=== PATIENT | male | born 1985 ===

== ENCOUNTER 2021-08-05 08:23 | Outpatient (CLI) | payer MEDICAID ==
[2021-08-05 15:22] LABS: ALBUMIN 2.9 g/dL (3.2-5.5); ALBUMIN/GLOBULIN RATIO 0.7 (1.0-2.2); BILIRUBIN,TOTAL 1.1 mg/dL (0.2-1.0); CALCIUM 9.1 mg/dL (8.5-10.3); CREATININE 0.9 mg/dL (0.6-1.2); CRP - C-REACTIVE PROTEIN 6.4 mg/dL (0-1.0); TOTAL PROTEIN 7.1 g/dL (6.7-8.2)
[2021-08-08 10:02] LABS: IMMUNOGLOBULIN A 274 mg/dL (47-310); IMMUNOGLOBULIN G 834 mg/dL (600-1640); IMMUNOGLOBULIN M 109 mg/dL (50-300)
== END 2021-08-05 08:24 | disposition home or self-care (01) ==
LOC: LAB.S 08:23
PROVIDERS: ATTEND Physician Assistant
DX: R19.7 Diarrhea, unspecified (principal); K62.5 Hemorrhage of anus and rectum
CPT/HCPCS: 36415; 80053; 82784; 83516; 84443; 86140

== ENCOUNTER 2021-08-21 16:06 | Emergency (ER) | payer MEDICAID ==
--- NOTE | 2021-08-21 16:32 | ED Physician Documentation ---
History of Present Illness - Stated complaint Stated Complaint: DIARRHEA,FATIGUE,SKIN/MOUTH DRY - Chief complaint Chief Complaint: Abd Pain - History obtained from History obtained from: Patient - Additonal information Additional information: 36-year-old male who presents with about 6 weeks of profuse watery, sometimes bloody, diarrhea. Initially was coming about every hour than so down to every 2 hours. He was seen by an outside provider and started on Flagyl and Sulfasalazine, though he is not sure if he had any particular infection or diagnosis of UC. He then had a colonoscopy on 08.19.21 at [facility]. According to the records received from this colonoscopy, the patient had a hemorrhoids, and normal terminal ileum and the entire colon was diffusely erythematous, extremely friable, ulcerated and covered with pseudomembranes. There was also presence of a pseudopolyp appearance throughout the colon. Biopsies were taken with a cold forceps for histology. The patient states that he was not given any medication after this. He does have a follow-up he believes on Wednesday with the carousel attendant. He states he has had persistent diarrhea since the colonoscopy and feels as though he is getting Hydrated. He states he tries to eat but everything goes right through him, diarrhea is now just watery, nonbloody. He has not had any vomiting, no fever or chills, no chest pain or dyspnea, no abdominal pain. He has lost 35 pounds in the last 6 weeks and feels generally weak and tired. He states no recent travel out of the country, he did go camping up at [facility] prior to developing the diarrhea and they were drinking water from a camping water filter, no other known exposures. Review of Systems Ten Systems: 10 systems reviewed and negative GI: reports: Diarrhea PD PAST MEDICAL HISTORY - Past Medical History Past Medical History: No - Present Medications Home Medications: Ambulatory Orders Medication Instructions Recorded Confirmed Vancomycin [Vancocin] 125 mg PO QID #40 08/21/21 predniSONE [Deltasone] 40 mg PO DAILY 5 Days #10 tablet 08/21/21 sulfaSALAzine [Azulfidine] 500 mg PO QID 08/21/21 08/21/21 - Allergies Allergies/Adverse Reactions: Allergies Allergy/AdvReac Type Severity Reaction Status Date / Time No Known Drug Allergies Allergy Verified 08/21/21 16:25 PD ED PE NORMAL - Vitals Vital signs reviewed: Yes - General General: Alert and oriented X 3, No acute distress, Other (Cachectic) - HEENT HEENT: Atraumatic, Pharynx benign - Neck Neck: Supple, no meningeal sign, No JVD - Cardiac Cardiac: RRR, No murmur - Respiratory Respiratory: No respiratory distress, Clear bilaterally - Abdomen Abdomen: Normal bowel sounds, Soft, Non tender, Non distended, Other (Thin, concave) - Derm Derm: Normal color, Warm and dry, No rash - Extremities Extremities: No deformity, No tenderness to palpate, Normal ROM s pain - Neuro Neuro: Alert and oriented X 3, No motor deficit, No sensory deficit, Normal speech Eye Opening: Spontaneous Motor: Obeys Commands Verbal: Oriented GCS Score: 15 - Psych Psych: Normal mood, Normal affect Results - Vitals Vitals: Vital Signs - 24 hr 08/21/21 08/21/21 08/21/21 16:08 17:38 19:27 Temperature 37.2 C 36.6 C Heart Rate 90 78 84 Respiratory 16 18 18 Rate Blood Pressure 123/80 123/62 113/61 O2 Saturation 100 99 99 08/21/21 20:49 Temperature 36.7 C Heart Rate 85 Respiratory 16 Rate Blood Pressure 113/79 O2 Saturation 99 Oxygen O2 Source Room air - Labs Labs: Laboratory Tests 08/21/21 08/21/21 08/21/21 16:53 16:53 16:53 WBC 10.7 RBC 3.91 L Hgb 11.2 L Hct 34.8 L MCV 89.0 MCH 28.6 MCHC 32.2 RDW 13.2 Plt Count 436 MPV 7.9 Neut # (Auto) 8.2 H Lymph # (Auto) 1.3 L [place] # (Auto) 1.0 Eos # (Auto) 0.1 Baso # (Auto) 0.1 Absolute Nucleated RBC 0.00 Nucleated RBC % 0.0 Sodium 124 L Potassium 5.1 H Chloride 92 L Carbon Dioxide 25 Anion Gap 7.0 BUN 12 Creatinine 0.6 Estimated GFR (MDRD) 152 Glucose 109 H Lactic Acid 1.3 Calcium 7.6 L Magnesium Total Bilirubin 0.5 AST 13 ALT 11 Alkaline Phosphatase 53 Total Protein 5.3 L Albumin 2.3 L Globulin 3.0 Albumin/Globulin Ratio 0.8 L Lipase 80 H Urine Color Urine Clarity Urine pH Ur Specific [place] Urine Protein Urine Glucose (UA) Urine Ketones Urine Occult Blood Urine Nitrite Urine Bilirubin Urine Urobilinogen Ur Leukocyte Esterase Ur Microscopic Review Urine Culture Comments 08/21/21 08/21/21 16:53 16:59 WBC RBC Hgb Hct MCV MCH MCHC RDW Plt Count MPV Neut # (Auto) Lymph # (Auto) [place] # (Auto) Eos # (Auto) Baso # (Auto) Absolute Nucleated RBC Nucleated RBC % Sodium Potassium Chloride Carbon Dioxide Anion Gap BUN Creatinine Estimated GFR (MDRD) Glucose Lactic Acid Calcium Magnesium 2.0 Total Bilirubin AST ALT Alkaline Phosphatase Total Protein Albumin Globulin Albumin/Globulin Ratio Lipase Urine Color YELLOW Urine Clarity CLEAR Urine pH 7.0 Ur Specific [place] 1.010 Urine Protein NEGATIVE Urine Glucose (UA) NEGATIVE Urine Ketones NEGATIVE Urine Occult Blood NEGATIVE Urine Nitrite NEGATIVE Urine Bilirubin NEGATIVE Urine Urobilinogen 0.2 (NORMAL) Ur Leukocyte Esterase NEGATIVE Ur Microscopic Review NOT INDICATED Urine Culture Comments NOT INDICATED PD MEDICAL DECISION MAKING - ED course Complexity details: reviewed results, re-evaluated patient, considered differential, d/w patient ED course: This is a very pleasant 36-year-old male who has been having approximately 6 weeks of watery diarrhea with a 35 pound weight loss. He is being followed by GI at [facility] and had a recent colonoscopy that showed diffuse ulcerations and pseudomembranous colitis. He has not had any improvement since his colonoscopy. He was concerned that he was possibly getting dehydrated which was the primary reason for his visit. His vitals were stable on arrival, we did do a work-up including CBC, CMP and UA. Work-up significant for a normal white blood cell count, a potassium of 5.1, sodium of 124, mag of 2, normal renal function. The patient was given a total of 2 L of normal saline and he felt substantially better after the first liter. I did give him 60 of Solu-Medrol for possible ulcerative colitis flare as he does not seem to be responding to the sulfasalazine. I also elected to start him on treatment for possible C. difficile though this may be stopped by GI once test results are back. He received Vanco at 125 mg p.o. here and I will discharge him on 125 mg p.o. 4 times a day. We will continue the steroids for the next 4 days, prednisone 40 mg daily. Did advise that he could take Lomotil or Imodium [id number] if needed to reduce diarrhea spells, but should not take this if he develops a fever or increasing abdominal pain. I did offer to admit the patient for symptomatic treatment however he was feeling better after IV fluids and I think he is safe to go home at this time and follow-up tomorrow on the phone with his GI specialist. I did review return precautions if he were to get a fever, abdominal pain, or felt increasingly weak or confused. Or if he had other new concerns he was advised to return to the ER at any point time. Patient will follow up with his GI specialist tomorrow on the phone. Departure - Departure Disposition: Home, Self Care Clinical Impression: Colitis Instructions: ED Gastroenteritis Ollie Prescriptions: predniSONE [Deltasone] 40 mg PO DAILY 5 Days #10 tablet Vancomycin [Vancocin] 125 mg PO QID #40 Comments: You presented with severe diarrhea, weight loss, and dehydration. According to your recent colonoscopy you have likely infectious colitis, but it appears cultures and biopsies are pending. As we discussed, this could be due to a bacterial called C. diff and I am going to start you on treatment for that but this may be stopped when you follow up with your specialist pending cultures. Your sodium level here was low likely due to GI loss. We gave you 2 liters of IV normal saline and I also gave you a steroid via IV that may help with your symptoms, particularly if you have something called ulcerative colitis. I will discharge you with an additional 4 days of steroids, but again this might be stopped by your GI specialist. You can also take [id number] diarrhea medication such as Loperamide for the next several days as long as you do not have a fever. Please continue the medications as prescribed and follow up with your GI specialist on the phone tomorrow. If you feel you are getting worse between now and your follow up appointment next week, please return to the ER. Return at anytime if you have a fever. Discharge Date/Time: 08/21/21 20:51
[2021-08-21 16:58] LABS: BASOPHILS # (AUTO) 0.1 10^3/uL (0.0-0.1); BASOPHILS % (AUTO) 0.5 %; EOSINOPHILS # (AUTO) 0.1 10^3/uL (0.0-0.7); EOSINOPHILS % (AUTO) 1.2 %; HCT - HEMATOCRIT 34.8 % (42.0-52.0); HGB - HEMOGLOBIN 11.2 g/dL (14.0-18.0); LYMPHOCYTES # (AUTO) 1.3 10^3/uL (1.5-3.5); MEAN CORPUSCULAR HEMOGLOBIN 28.6 pg (27.0-31.0); MEAN CORPUSCULAR HGB CONC 32.2 g/dL (32.0-36.0); MEAN PLATELET VOLUME 7.9 fL (7.4-11.4); MONOCYTES % (AUTO) 9.3 %; NEUTROPHILS # (AUTO) 8.2 10^3/uL (1.5-6.6); NEUTROPHILS % (AUTO) 76.3 %; PLT - PLATELET COUNT 436 10^3/uL (130-450); RED BLOOD COUNT 3.91 10^6/uL (4.70-6.10); RED CELL DISTRIBUTION WIDTH 13.2 % (12.0-15.0); WHITE BLOOD COUNT 10.7 x10^3/uL (4.8-10.8)
[2021-08-21] MEDS ORDERED: SODIUM CHLORIDE 0.9% 1,000 ML IV STA ×2 (17:08→18:30)
[2021-08-21 17:10] LABS: ALBUMIN 2.3 g/dL (3.2-5.5); ALBUMIN/GLOBULIN RATIO 0.8 (1.0-2.2); BILIRUBIN,TOTAL 0.5 mg/dL (0.2-1.0); CALCIUM 7.6 mg/dL (8.5-10.3); CREATININE 0.6 mg/dL (0.6-1.2); POTASSIUM 5.1 mmol/L (3.5-5.0); TOTAL PROTEIN 5.3 g/dL (6.7-8.2)
[2021-08-21 17:13] LABS: BILIRUBIN,URINE NEGATIVE (NEGATIVE); GLUCOSE, URINE (UA) NEGATIVE (NEGATIVE); KETONES,URINE (UA) NEGATIVE (NEGATIVE); LEUKOCYTE ESTERASE, URINE NEGATIVE (NEGATIVE); NITRITE,URINE NEGATIVE (NEGATIVE); OCCULT BLOOD,URINE NEGATIVE (NEGATIVE); PROTEIN,URINE NEGATIVE (NEGATIVE); UROBILINOGEN,URINE 0.2 (NORMAL) E.U./dL (NORMAL)
[2021-08-21 17:15] LABS: CLARITY,URINE CLEAR (CLEAR)
[2021-08-21] MEDS ORDERED: methylPREDNISolone SUCCINATE 40 MG/ML VIAL IVP STA (17:19)
[2021-08-21] MEDS ORDERED: DIPHENOX/ATROPINE 2.5/0.025 MG TABLET PO STA (18:40)
[2021-08-21] MEDS ORDERED: VANCOMYCIN 125 MG CAPSULE PO SCH (19:00)
[2021-08-21 20:51] VITALS: BP 113/79
== END 2021-08-21 20:51 | disposition home or self-care (01) ==
LOC: ED 16:06
DX: K52.9 Noninfective gastroenteritis and colitis, unspecified (principal)
CPT/HCPCS: 36415; 80053; 81003; 83605; 83690; 83735; 85025; 96374; 99283; 99284; A9270; J8499; 81001; 87086

== ENCOUNTER 2021-08-23 14:48 | Emergency (ER) | payer MEDICAID ==
[2021-08-23 15:17] LABS: BASOPHILS % (AUTO) 0.4 %; EOSINOPHILS % (AUTO) 0.4 %; HCT - HEMATOCRIT 36.7 % (42.0-52.0); HGB - HEMOGLOBIN 11.7 g/dL (14.0-18.0); LYMPHOCYTES # (AUTO) 1.8 10^3/uL (1.5-3.5); LYMPHOCYTES % (AUTO) 21.5 %; MEAN CORPUSCULAR HEMOGLOBIN 28.7 pg (27.0-31.0); MEAN CORPUSCULAR HGB CONC 31.9 g/dL (32.0-36.0); MONOCYTES # (AUTO) 1.1 10^3/uL (0.0-1.0); MONOCYTES % (AUTO) 12.5 %; NEUTROPHILS # (AUTO) 5.5 10^3/uL (1.5-6.6); NEUTROPHILS % (AUTO) 64.6 %; PLT - PLATELET COUNT 592 10^3/uL (130-450); RED BLOOD COUNT 4.08 10^6/uL (4.70-6.10); RED CELL DISTRIBUTION WIDTH 13.3 % (12.0-15.0); WHITE BLOOD COUNT 8.5 x10^3/uL (4.8-10.8)
--- NOTE | 2021-08-23 15:29 | XRAY Report ---
PROCEDURE: Lumbar Spine 2 View INDICATIONS: pain TECHNIQUE: 2 views of the lumbar spine were acquired. COMPARISON: None. FINDINGS: Bones: 5 [id number] vertebrae are present. There is normal bony alignment. No vertebral body compression fractures. No suspicious bony lesions. Soft tissues: Overlying bowel gas pattern is normal. No suspicious soft tissue calcifications. IMPRESSION: No acute compression fracture or spondylolisthesis in lumbar spine. Reviewed by: Asael Mock MD on 08/23/2021 3:27 PM PDT Approved by: Asael Mock MD on 08/23/2021 3:27 PM PDT Station ID: [id number]
--- NOTE | 2021-08-23 15:29 | XRAY Report ---
PROCEDURE: Chest 1 View X-Ray INDICATIONS: chest pain TECHNIQUE: One view of the chest was acquired. COMPARISON: None. FINDINGS: Surgical changes and devices: None. Lungs and pleura: No pleural effusions or pneumothorax. Lungs are clear. Mediastinum: Mediastinal contours appear normal. Heart size is normal. Bones and chest wall: No suspicious bony lesions. Overlying soft tissues appear unremarkable. IMPRESSION: No acute cardiopulmonary pathology. Reviewed by: Asael Mock MD on 08/23/2021 3:28 PM PDT Approved by: Asael Mock MD on 08/23/2021 3:28 PM PDT Station ID: [id number]
[2021-08-23 15:39] LABS: BILIRUBIN,URINE NEGATIVE (NEGATIVE); GLUCOSE, URINE (UA) NEGATIVE (NEGATIVE); KETONES,URINE (UA) NEGATIVE (NEGATIVE); LEUKOCYTE ESTERASE, URINE NEGATIVE (NEGATIVE); NITRITE,URINE NEGATIVE (NEGATIVE); OCCULT BLOOD,URINE NEGATIVE (NEGATIVE); PROTEIN,URINE NEGATIVE (NEGATIVE); UROBILINOGEN,URINE 0.2 (NORMAL) E.U./dL (NORMAL)
[2021-08-23 15:39] LABS: ALBUMIN 2.4 g/dL (3.2-5.5); ALBUMIN/GLOBULIN RATIO 0.7 (1.0-2.2); BILIRUBIN,TOTAL 0.7 mg/dL (0.2-1.0); CALCIUM 8.3 mg/dL (8.5-10.3); CREATININE 0.6 mg/dL (0.6-1.2); POTASSIUM 4.2 mmol/L (3.5-5.0); TOTAL PROTEIN 5.9 g/dL (6.7-8.2)
[2021-08-23 15:41] LABS: CLARITY,URINE CLEAR (CLEAR)
[2021-08-23] MEDS ORDERED: IOVERSOL 320 100 ML VIAL IVP ONE ×3 (15:47→17:46)
--- NOTE | 2021-08-23 16:37 | CT Report ---
PROCEDURE: ANGIO CHEST W/WO INDICATIONS: chest pain, elevated d-dimer CONTRAST: IV CONTRAST: Optiray 320 ml: 60 PO CONTRAST: *NO PO CONTRAST TECHNIQUE: After the administration of intravenous contrast, 2 mm axial images were acquired from the pulmonary apices to the posterior costophrenic angles during the arterial phase. In addition, 1 mm lung kernel and 5 mm soft tissue kernel reconstructions were performed. 3-dimensional coronal oblique maximum int ensity projection (MIP) reformats, 8 mm axial MIP, and 5 mm coronal and sagittal MPR reformats were t hen performed through the thorax. For radiation dose reduction, the following was used: automated exp osure control, adjustment of mA and/or kV according to patient size. COMPARISON: Correlation is made with prior chest radiograph, 08/23/2021 and the accompanying pelvis CT, 08/23/2021. FINDINGS: Image quality: Excellent. Pulmonary arteries: Pulmonary arteries are normal in size. A mild burden of right lower lobe pulmona ry emboli can be seen, with filling defects seen within the segmental and subsegmental branches. The right middle lobe and the right upper lobe appear free from thrombus. No definite thrombus can be see n on the left. Lungs and pleura: Dependent right lower lobe infiltrate is seen. The left lung appears clear. No pleu ral effusions or pneumothorax. Central and peripheral airways are patent. Mediastinum: No findings of right heart strain can be seen. Heart size is normal, without pericardial effusion. No mediastinal or hilar adenopathy. Thoracic aorta is normal in caliber and enhancement. Esophagus is normal in caliber, without hiatal hernia. Bones and chest wall: No suspicious bony lesions. Ribs and thoracic spine appear intact throughout. No axillary or supraclavicular adenopathy. The thyroid is normal in size and there are no incident al findings. Abdomen: Prominent bowel loops can be seen within the upper abdomen. IMPRESSION: A mild burden of right lower lobe pulmonary embolism can be seen. Focal consolidation can be seen involving the right lower lobe. This is attributed to infection, alth ough differential diagnosis would also include pulmonary infarct. Prominent bowel loops are seen within the upper abdomen. Note: Case discussed by telephone with Nadiya Kennedy at 3:33 PM [place] time on 08/23/2021. Reviewed by: Devin Haile MD on 08/23/2021 3:36 PM AKDT Approved by: Devin Haile MD on 08/23/2021 3:36 PM ESMER Station ID: [id number]
--- NOTE | 2021-08-23 16:40 | CT Report ---
PROCEDURE: Abdomen/Pelvis W INDICATIONS: cmv colitis, increased pain right flank CONTRAST: IV CONTRAST: Optiray 320 ml: 100 PO CONTRAST: *NO PO CONTRAST TECHNIQUE: After the administration of IV contrast, 5 mm thick sections acquired from the diaphragms to the symp hysis. 5 mm thick coronal and sagittal reformats were acquired. For radiation dose reduction, the f ollowing was used: automated exposure control, adjustment of mA and/or kV according to patient size. COMPARISON: Correlation is made with the accompanying chest CT as well as lumbar spine plain films, 08/23/2021. FINDINGS: Image quality: Excellent. ABDOMEN: Lung bases: Right lower lobe pulmonary infiltrate is seen. Heart size is normal. Solid organs: Liver and spleen are normal in size and enhancement. Gallbladder wall does not appear thickened. Biliary system is non dilated. Pancreas enhances normally. No adrenal nodules. Kidn eys demonstrate normal size and enhancement, without hydronephrosis. Peritoneum and bowel: Abnormally prominent fluid-filled loops of small bowel are seen, which demonstr ate hyperenhancement. The transition point can be seen. The colon appears irregular, thickened harman and hyperenhancement. No free air or significant free fluid can be seen. Nodes and vessels: No retroperitoneal or mesenteric adenopathy by size criteria. Aorta and inferior vena cava are normal in size. Miscellaneous: No ventral hernias. PELVIS: Genitourinary: Bladder wall thickness is normal. Miscellaneous: No inguinal hernias or adenopathy. Bones: No suspicious bony lesions. No vertebral body compression fractures. IMPRESSION: Abnormally thickened and hyperenhancing small bowel harman and colonic harman. Additional history is given by Nadiya Kennedy of recent colonoscopy with a diagnosis of pseudomembranous coliti s. Right lower lobe infiltrate. Note: Case discussed by telephone with Nadiya Kennedy at 3:33 PM [place] time on 08/23/2021. Reviewed by: Devin Haile MD on 08/23/2021 3:39 PM ESMER Approved by: Devin Haile MD on 08/23/2021 3:39 PM ESMER Station ID: [id number]
[2021-08-23 17:11] LABS: HIV RAPID SCREEN NEGATIVE (NEGATIVE)
[2021-08-23 17:13] VITALS: BP 107/60
--- NOTE | 2021-08-23 19:01 | ED Physician Documentation ---
History of Present Illness - Stated complaint Stated Complaint: BACK PX/SOA - Chief complaint Chief Complaint: Abd Pain - Additonal information Additional information: 36-year-old male who was seen just 2 days ago for colitis who presents now with a sudden onset of right Flank and lower back pain. He noticed it yesterday, it is worse with deep inspiration particular movements. He states that he got a massage and his chiropractor noted a nodule on the lower back which he was concerned about. He feels mildly short of breath particularly with trying to take a deep breath and with ambulation. He denies any trauma to the back, no known rash, no cough, no chest pain. Has not had any fever, chills, new abdominal pain, vomiting, urinary symptoms. 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 She apparently [place] Patient also has a follow-up with his primary care provider on Wednesday. He reports slight improvement in His diarrhea, he has made some diet changes per recommendations from GI and notes some improvement. He did stop the medication I given him after the results of the colonoscopy came back. Review of Systems Constitutional: reports: Fatigue, Weight Loss. denies: Fever, Chills, Myalgias Nose: reports: Other (Oral lesions). denies: Rhinorrhea / runny nose, Congestion, Sinus pressure / pain Throat: reports: Oral lesions / sores. denies: Dental pain / toothache, Sore throat, Swollen tonsils Cardiac: denies: Chest pain / pressure, Palpitations, Pedal edema, Calf pain Respiratory: reports: Dyspnea. denies: Cough, Hemoptysis, Wheezing GI: reports: Diarrhea. denies: Abdominal Pain, Abdominal Swelling, Nausea, Vomiting, Constipation : reports: Reviewed and negative Skin: reports: Reviewed and negative Musculoskeletal: reports: Back pain. denies: Neck pain, Extremity pain, Joint pain, Extremity swelling, Joint swelling, Pain with weight bearing Neurologic: reports: Reviewed and negative Psychiatric: reports: Reviewed and negative PD PAST MEDICAL HISTORY - Past Medical History Past Medical History: Yes Cardiovascular: None Respiratory: None Neuro: None Endocrine/Autoimmune: None GI: Chronic diarrhea, Ulcerative colitis : None HEENT: None Psych: None Musculoskeletal: None Derm: None - Past Surgical History Past Surgical History: Yes Ortho: ACL reconstruction - Present Medications Home Medications: Ambulatory Orders Medication Instructions Recorded Confirmed Rivaroxaban [Xarelto] 15 mg PO BID #42 tablet 08/23/21 - Allergies Allergies/Adverse Reactions: Allergies Allergy/AdvReac Type Severity Reaction Status Date / Time No Known Drug Allergies Allergy Verified 08/23/21 14:50 - Social History Does the pt smoke?: No Smoking Status: Never smoker Does the pt drink ETOH?: No Does the pt have substance abuse?: Yes Substance Use and Type: Marijuana, CBD oil / Products - Immunizations Immunizations are current?: No Immunizations: Other immun not current - POLST Patient has POLST: No PD ED PE NORMAL - Vitals Vital signs reviewed: Yes - General General: Alert and oriented X 3, Other (Cachexic, chronically ill appearing) - HEENT HEENT: Atraumatic, Moist mucous membranes, Other (Flat white lesions inner upper and lower lips) - Neck Neck: Supple, no meningeal sign, No JVD - Cardiac Cardiac: RRR, No murmur - Respiratory Respiratory: No respiratory distress, Clear bilaterally - Abdomen Abdomen: Normal bowel sounds, Soft, Non tender, Non distended, Other (concave) - Back Back: No CVA TTP, No spinal TTP, Other (right lumbar paravertebral nodule palpated in the muscle, no erythema or fluctuance) - Derm Derm: Normal color, Warm and dry, No rash - Extremities Extremities: No deformity, No tenderness to palpate, Normal ROM s pain, No edema, No calf tenderness / cord - Neuro Neuro: Alert and oriented X 3 Eye Opening: Spontaneous Motor: Obeys Commands Verbal: Oriented GCS Score: 15 - Psych Psych: Normal mood, Normal affect Results - Vitals Vitals: Vital Signs - 24 hr 08/23/21 08/23/21 08/23/21 14:50 15:15 15:22 Temperature 36.5 C 36.4 C L Heart Rate 80 80 71 Respiratory 16 18 16 Rate Blood Pressure 115/59 L 108/73 O2 Saturation 100 100 08/23/21 17:00 Temperature Heart Rate 76 Respiratory 17 Rate Blood Pressure 107/60 O2 Saturation 100 Oxygen O2 Source Room air - EKG (time done) No standard instances Rate: Rate (enter#) (71) Rhythm: NSR [place]: RAD Ischemia: ST elevation c/w repol Computer interpretation: Agree with computer - Labs Labs: Laboratory Tests 08/23/21 08/23/21 08/23/21 15:05 15:07 15:07 WBC 8.5 RBC 4.08 L Hgb 11.7 L Hct 36.7 L MCV 90.0 MCH 28.7 MCHC 31.9 L RDW 13.3 Plt Count 592 H MPV 8.0 Neut # (Auto) 5.5 Lymph # (Auto) 1.8 [place] # (Auto) 1.1 H Eos # (Auto) 0.0 Baso # (Auto) 0.0 Absolute Nucleated RBC 0.00 Nucleated RBC % 0.0 D-Dimer Sodium 128 L Potassium 4.2 Chloride 95 L Carbon Dioxide 23 Anion Gap 10.0 BUN 13 Creatinine 0.6 Estimated GFR (MDRD) 152 Glucose 87 Calcium 8.3 L Total Bilirubin 0.7 AST 22 ALT 20 Alkaline Phosphatase 51 Troponin I High Sens Total Protein 5.9 L Albumin 2.4 L Globulin 3.5 Albumin/Globulin Ratio 0.7 L Lipase 81 H Urine Color YELLOW Urine Clarity CLEAR Urine pH 7.0 Ur Specific [place] <=1.005 Urine Protein NEGATIVE Urine Glucose (UA) NEGATIVE Urine Ketones NEGATIVE Urine Occult Blood NEGATIVE Urine Nitrite NEGATIVE Urine Bilirubin NEGATIVE Urine Urobilinogen 0.2 (NORMAL) Ur Leukocyte Esterase NEGATIVE Ur Microscopic Review NOT INDICATED Urine Culture Comments NOT INDICATED HIV 1&2 Antibody Rapid 08/23/21 08/23/21 08/23/21 15:07 15:07 15:44 WBC RBC Hgb Hct MCV MCH MCHC RDW Plt Count MPV Neut # (Auto) Lymph # (Auto) [place] # (Auto) Eos # (Auto) Baso # (Auto) Absolute Nucleated RBC Nucleated RBC % D-Dimer > 1050.0 H Sodium Potassium Chloride Carbon Dioxide Anion Gap BUN Creatinine Estimated GFR (MDRD) Glucose Calcium Total Bilirubin AST ALT Alkaline Phosphatase Troponin I High Sens 2.5 Total Protein Albumin Globulin Albumin/Globulin Ratio Lipase Urine Color Urine Clarity Urine pH Ur Specific [place] Urine Protein Urine Glucose (UA) Urine Ketones Urine Occult Blood Urine Nitrite Urine Bilirubin Urine Urobilinogen Ur Leukocyte Esterase Ur Microscopic Review Urine Culture Comments HIV 1&2 Antibody Rapid NEGATIVE PD MEDICAL DECISION MAKING - ED course Complexity details: reviewed results, re-evaluated patient, considered differential, d/w patient ED course: This is a 36-year-old male who has 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 We obtained a cardiac work-up as well as d-dimer for possible PE. His D-dimer was extremely elevated therefore we proceeded with a CT of his chest which showed a right lower lung PE as well as consolidation. Consolidation possibly pneumonia versus infarction. The patient has no leukocytosis, fever, cough so I will hold off on treatment for pneumonia at this time but did discuss starting Xarelto for a PE. The patient also had a CT abdomen and pelvis due to His history of severe colitis and right flank pain, there is no acute findings here. Patient was found to have CMV colitis per outpt colonoscopy and will start antiviral treatment per his GI physician who he will see on Wednesday. We did obtain an HIV test due to the concern for possible immunocompromisation in this rapid test is negative, signout is pending. Patient does not have risk factors HIV infection. He is due to follow up with his PCP on Wednesday at which time he can discuss duration of anticoag therapy. Risks vs benefits of this medication discussed. Return precautions reviewed. Departure - Departure Disposition: Home, Self Care Clinical Impression: Colitis, Hyponatremia Pulmonary emboli Qualifiers: Pulmonary embolism type: single subsegmental (without acute cor pulmonale) Qualified Code(s): I26.93 - Single subsegmental pulmonary embolism without acute cor pulmonale Condition: Fair Instructions: Embolism Pulmonary Dc Prescriptions: Rivaroxaban [Xarelto] 15 mg PO BID #42 tablet Comments: You presented with right lower back pain and on exam we found that you had a small area of pulmonary embolus (blood clot) in the right lower lung. We obtained other labs including a CBC and come metabolic panel and these were largely reassuring. You have had low sodium today and during past visits though it is improved from 2 days ago. Continue the diet modifications you are discussed with the GI doctor. We will place you on a medication that is a blood thinner called Xarelto and you will take this twice a day until you follow-up with your primary care provider on Wednesday to determine the duration of therapy. Please also use keep your appointment with your GI physician on Wednesday to begin treatment for your CMV colitis. As we discussed, we did a rapid HIV test which was negative but I have also done a send-out Test to confirm. Also, the oral lesions are likely related to ulcerative colitis as you can get similar lesions throughout the GI tract. You can use [id number] medication for mouth sores or receive a prescription for Magic mouthwash. Discharge Date/Time: 08/23/21 17:39
[2021-08-25 17:11] LABS: HIV AG/AB 4TH GEN NON-REACTIVE (NON-REACTIVE)
== END 2021-08-23 17:39 | disposition home or self-care (01) ==
LOC: ED 14:48
DX: I26.93 Single subsegmental thrombotic pulmonary embolism without acute cor pulmonale (principal); K52.89 Other specified noninfective gastroenteritis and colitis; B25.8 Other cytomegaloviral diseases; E87.1 Hypo-osmolality and hyponatremia
CPT/HCPCS: 36415; 71045; 71275; 72100; 74177; 80053; 81003; 83690; 84484; 85025; 85379; 86703; 87389; 93005; 99284; Q9967; 81001; 87086

== ENCOUNTER 2022-10-13 09:38 | Outpatient (CLI) | payer MEDICAID ==
[2022-10-13 15:11] LABS: BASOPHILS % (AUTO) 0.4 %; EOSINOPHILS # (AUTO) 0.1 10^3/uL (0.0-0.7); EOSINOPHILS % (AUTO) 1.1 %; HCT - HEMATOCRIT 47.4 % (42.0-52.0); HGB - HEMOGLOBIN 15.2 g/dL (14.0-18.0); LYMPHOCYTES # (AUTO) 1.1 10^3/uL (1.5-3.5); LYMPHOCYTES % (AUTO) 19.1 %; MEAN CORPUSCULAR HEMOGLOBIN 29.3 pg (27.0-31.0); MEAN CORPUSCULAR HGB CONC 32.1 g/dL (32.0-36.0); MEAN CORPUSCULAR VOLUME 91.5 fL (80.0-94.0); MONOCYTES # (AUTO) 0.6 10^3/uL (0.0-1.0); MONOCYTES % (AUTO) 10.6 %; NEUTROPHILS # (AUTO) 3.8 10^3/uL (1.5-6.6); NEUTROPHILS % (AUTO) 68.6 %; PLT - PLATELET COUNT 291 10^3/uL (130-450); RED BLOOD COUNT 5.18 10^6/uL (4.70-6.10); RED CELL DISTRIBUTION WIDTH 12.3 % (12.0-15.0); WHITE BLOOD COUNT 5.6 x10^3/uL (4.8-10.8)
[2022-10-13 15:13] LABS: BILIRUBIN,URINE NEGATIVE (NEGATIVE); GLUCOSE, URINE (UA) NEGATIVE (NEGATIVE); KETONES,URINE (UA) NEGATIVE (NEGATIVE); LEUKOCYTE ESTERASE, URINE NEGATIVE (NEGATIVE); NITRITE,URINE NEGATIVE (NEGATIVE); OCCULT BLOOD,URINE NEGATIVE (NEGATIVE); PROTEIN,URINE NEGATIVE (NEGATIVE); UROBILINOGEN,URINE 0.2 (NORMAL) E.U./dL (NORMAL)
[2022-10-13 15:16] LABS: CLARITY,URINE CLEAR (CLEAR)
[2022-10-13 15:29] LABS: BACTERIA,URINE None Seen /HPF (None Seen); RBC,URINE None Seen /HPF (0-5); SQUAMOUS EPITHELIAL CELL,UR NONE SEEN (<= Few); WBC,URINE 0-3 /HPF (0-3)
[2022-10-13 15:38] LABS: THYROID STIMULATING HORMONE 2.38 uIU/mL (0.34-5.60)
[2022-10-13 15:40] LABS: FREE T4 (FREE THYROXINE) 1.01 ng/dL (0.58-1.64)
[2022-10-13 15:42] LABS: FREE T3 3.59 pg/mL (2.5-3.9)
[2022-10-13 15:45] LABS: ALBUMIN 4.7 g/dL (3.2-5.5); ALBUMIN/GLOBULIN RATIO 1.5 (1.0-2.2); ALKALINE PHOSPHATASE 86 IU/L (42-121); ALT ALANINE AMINOTRANSFERASE 20 IU/L (10-60); AST ASPARTATE AMINOTRANSFERASE 20 IU/L (10-42); BILIRUBIN,DIRECT 0.3 mg/dL (0.1-0.5); BILIRUBIN,TOTAL 2.6 mg/dL (0.2-1.0); BUN - BLOOD UREA NITROGEN 14 mg/dL (6-20); CALCIUM 9.7 mg/dL (8.5-10.3); CARBON DIOXIDE - CO2 29 mmol/L (21-32); CHLORIDE 99 mmol/L (101-111); CHOL/HDL RATIO 3.5 (<5.0); CHOLESTEROL 216 mg/dL; CREATININE 0.9 mg/dL (0.6-1.2); GAMMA GLUTAMYL TRANSPEPTIDASE 24 IU/L (8-55); GFR - MDRD 95 (>89); GLUCOSE 84 mg/dL (70-100); HDL CHOLESTEROL 62 mg/dL; PHOSPHORUS 2.8 mg/dL (2.5-4.6); POTASSIUM 4.4 mmol/L (3.5-5.0); SODIUM 137 mmol/L (135-145); TOTAL PROTEIN 7.8 g/dL (6.7-8.2); TRIGLYCERIDES 36 mg/dL; URIC ACID 7.7 mg/dL (2.6-7.2)
[2022-10-13 21:21] LABS: ESTIMATED AVERAGE GLUCOSE 117 mg/dL (70-100); HEMOGLOBIN A1c% 5.7 % (4.27-6.07)
[2022-10-15 01:08] LABS: VITAMIN D 25-HYDROXY 51.8 ng/mL (30.0-100.0)
== END 2022-10-13 09:39 | disposition home or self-care (01) ==
LOC: LAB.S 09:38
PROVIDERS: ATTEND Naturopath
DX: Z00.00 Encounter for general adult medical examination without abnormal findings (principal)
CPT/HCPCS: 36415; 80053; 80061; 81001; 82248; 82306; 82607; 82746; 82977; 83036; 83615; 83721; 84100; 84439; 84443; 84481; 84482; 84550; 85025; 85651; 87086